=== PATIENT | male | born 1950 | race Caucasian/White ===

== ENCOUNTER 2022-05-16 02:43 | Outpatient (CLI) | payer MEDICARE, SELFPAY ==
[2022-05-16 08:31] LABS: ALT 25 U/L (16-63); AST 17 U/L (15-37); Alkaline Phosphatase 74 U/L (46-116); Anion Gap 7.4 mmol/L (3-11); BUN 17 mg/dL (7-18); CO2 27.6 mmol/L (21.0-32.0); CREATININE 0.9 mg/dL (0.70-1.30); Calcium 9.2 mg/dL (8.5-10.1); Calculated LDL 142 mg/dL (<100); Chloride 106 mmol/L (98-107); Cholesterol 222 mg/dL (<200); Estimated GFR 91.31 (mL/min/1.73m2); Glucose 101 mg/dL (74-106); HDL Cholesterol 70 mg/dL (40-60); Sodium 141 mmol/L (136-145); Total Protein 7.3 g/dL (6.4-8.2); Triglyceride 53 mg/dL (<150)
[2022-05-17 09:24] LABS: Hepatitis C Ab w Rflx HCV PCR Negative (Negative)
== END 2022-05-16 02:44 | disposition home or self-care (01) ==
LOC: LBO 02:43
PROVIDERS: PCP Nurse Practitioner Family; Visit Provider Nurse Practitioner Family
DX: Z13.220 Encounter for screening for lipoid disorders (principal); Z13.1 Encounter for screening for diabetes mellitus; Z11.59 Encounter for screening for other viral diseases
CPT/HCPCS: 36415; 80053; 80061; 86803

== ENCOUNTER 2022-06-19 02:01 | Outpatient (CLI) | payer MEDICARE, SELFPAY ==
--- NOTE | 2022-06-19 12:56 | DI.RAD_ITS ---
Exam(s) XR WRIST RT COMPL NAVICULAR EXAM: XR WRIST RT COMPL NAVICULAR CLINICAL HISTORY: ?H/O fracture,RT WRIST PAIN, DEFORMITY OF WRIST, M21.939,M25.531. TECHNIQUE: 2D digital imaging was performed of the right wrist. Four views were obtained. Scaphoid, PA, lateral and oblique views were obtained. COMPARISON: No exams were available for comparison FINDINGS: BONES: No acute fracture is present. No bony destructive lesion is seen. JOINTS: Moderate degenerative changes are seen in the wrist, particularly at the 1st CMC joint and th e radiocarpal joint. SOFT TISSUE: Normal. IMPRESSION: Degenerative changes of the right wrist. DATA REPOSITORY: RADIATION DOSE DELIVERED:
== END 2022-06-19 02:21 ==
PROVIDERS: PCP Nurse Practitioner Family; Visit Provider Nurse Practitioner Adult Health
DX: M21 Other acquired deformities of limbs (principal); M25.531 Pain in right wrist
CPT/HCPCS: 73110

== ENCOUNTER → 2022-08-01 10:51 | Outpatient (BNVA) | payer MEDICARE, SELFPAY | PROVIDERS: PCP Nurse Practitioner Family; Referring Provider Nurse Practitioner Family; Visit Provider Surgery | DX: R19.5 Other fecal abnormalities (principal) | CPT/HCPCS: 99203; 99242 ==

== ENCOUNTER 2022-08-02 08:57 | Outpatient (CLI) | payer MEDICARE, SELFPAY ==
--- NOTE | 2022-08-02 09:00 | RT.EKG_ITS ---
APPROVED REPORT Exam: Resting ECG Reason for Exam: sinus arrythmia Patient Location: O HR:58 bpm ECG Measurements Heart Rate 58 AXIS [place] 202 P 33 QRSd 104 QRS 43 QT 414 T 21 QTc 407 Conclusion Sinus rhythm...normal P axis, V-rate 50- 99 RSR' in V1 or V2, Otherwise normal ECG
== END 2022-08-02 08:58 | disposition home or self-care (01) ==
PROVIDERS: PCP Nurse Practitioner Family; Visit Provider Surgery
DX: I49.8 Other specified cardiac arrhythmias (principal)
CPT/HCPCS: 93005; 93010

== ENCOUNTER 2022-08-09 09:15 | Day surgery (SDC) | payer MEDICARE, SELFPAY ==
--- NOTE | 2022-08-08 20:46 | W.COLOREPORT ---
Date of service: 08/09/22 Time of Service: 14:00 Colonoscopy Report Date of procedure: 08/09/22 Pre-op diagnosis general: Positive Cologurad Post-op diagnosis procedure note: other (polyps) Surgeon: Jyoti Grubbs Anesthesia Type: General:No Airway Estimated blood loss (mL): 1 Pathology: other Complications: None Disposition: same day Prep: Miralax/Dulcolax Retraction Time: 20 Procedure Description: After informed consent was obtained the patient was taken to the procedure room and placed in a left decubitous position. Monitors were applied and a time out was done. The patients name, date of , procedure, allergies to medications and metal in their body was reviewed. The patient was then sedated. Once sedated and comfortable a rectal exam was done. External exam was normal. Internal exam revealed a normal sphincter tone and no palpable masses. The scope was then introduced and retrofelexed. Internal hemorrhoidal tags were identified. The scope was then advanced to the cecum w/out difficulty. The TI and appendiceal orifice were identified. The prep was BBPS 2 throughout the entire colon for a total of 6. He had a lot of fibrous vegetative material in the colon that clogs the scope. 2 L of fluid was spent irrigating the colon. Lesions less than 5 mm may have been missed. The scope was then slowly retracted over 20 minutes back into the rectum. There are no diverticula or AVMs identified today. He has a flat 0.75 cm polyp at 30 cm. This is removed with a cold biting forcep. All specimen is retrieved and no bleeding is noted. The scope was removed and the patient was woken up and taken back to Same day surgery in stable condition. The patient tolerated the procedure well and there were no immediate complications. Follow up: The patient should follow up in 3,5 years, path pd, unless they develop changes in bowel habits or other new gastrointestinal complaints.
--- NOTE | 2022-08-08 20:48 | PDOC.DSDIS_ITS ---
Date of service: 08/09/22 Time of Service: 10:50 Discharge Plan Disposition Patient Disposition: Home Condition: Good Discharge Details Reason For Visit: colon scope Attending Provider: Jyoti Grubbs Primary Care Provider: Peggy Laura Home Meds and New Rx's Prescriptions: Continued multivitamin Tablet 1 tab PO DAILY cholecalciferol (vitamin D3) 125 mcg (5,000 unit) capsule 125 mcg PO DAILY ascorbic acid (vitamin C) 500 mg capsule 500 mg PO DAILY Discontinued polyethylene glycol 3350 17 gram/dose powder 238 g PO ONCE Qty: 238 0RF Rx Instructions: take per colonoscopy instructions bisacodyl [Dulcolax (bisacodyl)] 5 mg tablet,delayed release (DR/EC) 5 mg PO ONCE Qty: 4 0RF Rx Instructions: take per colonoscopy instructions Discharge Instructions Additional Instructions: DSU Colonoscopy Post- Op Instructions Instructions for Everyone who is given Anesthesia: For your safety, please do the following for the next twenty-four (24) hours: *Do Not operate a motor vehicle (car, truck, motorcycle, etc.) *Do Not drink alcoholic beverages or use any recreational drugs for the first 24 hours or while taking pain medications. The medications in your body may have a reaction that can be dangerous. *Do Not make any important decisions or sign any important papers. Findings: x1 polyps Follow up: Office will send a letter in 2 to 3 weeks time with the pathology of the polyp and when we want you to repeat the colonoscopy. Of course, you should continue to have a yearly physical exam including a rectal exam. If you should ever notice any pain or difficulty having a bowel movement, blood in the stool, unexplained weight loss, or change in your bowel habits, please contact your health provider 1. No lifting over 20 pounds or strenuous activity for the first 24 hours after your procedure. After 24 hours there are no restrictions on your activity but you may feel fatigued for a few days. 2. After you arrive home you may have a light meal and return to your normal diet as you can tolerate it without feeling sick to your stomach. 3. You may have a bloated, gaseous feeling in your belly (abdomen) after a colonoscopy. Passing gas and belching will help. Walking or lying down on your left side with your knees flexed may relieve the discomfort. Call the office at [phone] (Office) or [phone] (Hospital) right away if you notice any of the following: a.Vomiting of blood or ?coffee ground stools?. b.Rectal bleeding 1Tbsp, blood clots or continuous bleeding. c.Severe belly (abdominal) pain. d.A hard distended belly (abdomen) and an inability to pass gas. 4. Please don?t expect to have a normal BM (bowel movement) for 2-3 days after your procedure. 5. If there are questions regarding the findings of your procedure, please contact your doctor 6. If you are unable to contact your doctor with a problem, contact the hospital at [phone]. 7. Continue all your regular medications unless directed otherwise. I understand the above instructions and have no questions. Signature of Patient or Adult Escort Name of Responsible Adult Escort Signature of Nurse Date/Time Activity:: see above Diet:: see above Discharge Orders Discharge Orders: Discharge Order (Routine); Ordered 08/09/22 Ordered By: Jyoti Grubbs DS: Diagnosis Discharge Diagnosis (1) Positive colorectal cancer screening using DNA-based stool test: Status: Acute Asessment and Plan: The patient is seen and examined after their colonoscopy.? The patient has been able to pass gas.? They are not having abdominal pain.? They have been able to tolerate liquids and a snack.? They do not have any nausea or vomiting.? They are not having any chest pain or shortness of breath.??? They are not having any rectal bleeding. Their vital signs have been stable-see nursing notes. We discussed findings during their colonoscopy, and any biopsies that were done/polyps that were removed. The patient will be sent a letter with any biopsy results, and when to repeat the colonoscopy.-see discharge instructions. Patient was given explicit instructions to follow-up regarding colonoscopy-refer to discharge instructions.? We reviewed resumption of medications. Patient verbalized understanding and discharged in stable and satisfactory condition- See nursing notes.
[2022-08-09 09:29] VITALS: BP 135/89; PULSE 77; RESP 17; TEMP 36.5; O2SAT 96
[2022-08-09] MEDS: Lactated Ringers 1,000 ML 80 ML IV (09:40)
--- NOTE | 2022-08-09 09:58 | ANES.PREOP_ITS ---
General Info Date of Service Date Performed: 08/09/22 Height: 5 ft 10 in Weight: 82.5 kg Body Mass Index (BMI): 26.1 Surgical Procedure: Operation Date: 08/09/22 09:50 Proposed Procedure Side Surgeon p Colonoscopy Jyoti Grubbs, DO Actual Procedure Side Surgeon p Colonoscopy Jyoti Grubbs, DO Meds Allergies and Home Medications Allergies Allergy/AdvReac Type Severity Reaction Status Date / Time No Known Allergies Allergy Verified 08/09/22 09:28 Home Medication Medication Instructions Recorded ascorbic acid (vitamin C) 500 mg 500 mg PO DAILY 08/01/22 capsule cholecalciferol (vitamin D3) 125 125 mcg PO DAILY 08/01/22 mcg (5,000 unit) capsule multivitamin 1 tab PO DAILY 08/01/22 Current Visit Medications: Current Medications Generic Name Dose Route Start Last Admin Trade Name Freq PRN Reason Stop Dose Admin Hyoscyamine Sulfate 0.125 mg 08/09/22 08:44 Hyoscyamine 0.125 Mg Sl/Oral/Chew SL 09/08/22 08:43 DIRECTED PRN Ringer's Solution 1,000 mls @ 80 mls/hr 08/09/22 06:00 08/09/22 09:40 IV 08/09/22 23:59 80 mls/hr INFUSION MADDI Administration IV Miscellaneous Supplies 1 each 08/09/22 06:00 Iv Access IV 08/09/22 23:59 DIRECTED MADDI Ondansetron HCl 4 mg 08/09/22 08:44 Ondansetron 4 Mg/2 Ml Vial IVP 09/08/22 08:43 Q4H PRN PRN Nausea / Vomiting Sodium Chloride 0 ml 08/09/22 06:00 Normal Saline Flush 10 Ml Syr IV 08/09/22 23:59 PRN PRN Sodium Chloride 0 ml 08/09/22 06:00 Normal Saline 10 Ml Vial IJ 08/09/22 23:59 DIRECTED PRN Sterile Water 0 ml 08/09/22 06:00 Water,Injection,Sterile 10 Ml Vial IJ 08/09/22 23:59 DIRECTED PRN PFSH Active Problems Active Problems: Problem Status Onset Code Sinus arrhythmia I49.8 Positive colorectal cancer screening using DNA-based stool test R19.5 Hyperlipidemia, unspecified E78.5 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 removed in [facility] [place] Surgical History Surgical History H/O hernia repair (01/09/22) B/[place] inguinal[place] [facility] [place] History of cataract surgery (~2016) [facility] Status post tonsillectomy Tobacco Smoking/Tobacco Use Status: Never Passive smoking exposure: No Substance Use Substance use: Never Substance use type: does not use Vital Signs and Lab Results Vital Signs Most Recent Vital Signs in EMR: Most Recent Vital Signs Temp Pulse Resp BP Pulse Ox 36.5 C 77 17 135/89 96 08/09/22 09:29 08/09/22 09:29 08/09/22 09:29 08/09/22 09:29 08/09/22 09:29 Lab Results Blood Type / Crossmatch: No Data to Display Complete Blood Count: No Data to Display Complete Metabolic Panel: No Data to Display Liver Function Panel: No Data to Display Coagulation Panel: No Data to Display Cardiac Panel: No Data to Display Arterial Blood Gas: No Data to Display Venous Blood Gas: No Data to Display Pancreas Panel: No Data to Display Thyroid Panel: No Data to Display Infectious Disease: No Data to Display Blood Cultures: No Data to Display Toxicology Panel: No Data to Display Anesthesia Assessment and Plan Anesthesia History Personal History: No History of Anesthesia Complications Family History: No Family History of Anesthesia Complications Exercise Tolerance Exercise Tolerance: Metabolic Equivalents>4 Pertinent Negatives Pertinent Negatives: No Symptoms of GERD Cardiac & Pulmonary Exam Cardiac Exam: Normal S1/S2 Heart Sounds Pulmonary Exam: Clear Bilateral Breath Sounds Implantable Cardiac Device Does patient have a Pacemaker or an ICD?: No Airway Exam Known Difficult Airway: No Mallampati Class: 2 Mouth Opening: Normal (> 3cm) Thyromental Distance: Greater than 3 cm Neck Range of Motion: Full ROM Neck Circumference: Normal Teeth Condition: Normal Dentition ASA Classification ASA Score: ASA 2 Emergency Case?: No NPO Status NPO Status: NPO Clears >2 hours, Solids >8 hours Anesthesia Plan Resuscitation Status: Full Code Anesthesia Technique: General Anesthesia Airway Planned: Natural Airway Monitors Used: Standard Monitors
[2022-08-09 09:59] VITALS: BMI 26.1
--- NOTE | 2022-08-09 10:35 | BOWEL_PTH ---
PATIENT: Rosalba Santiago LOC: [facility] U#:[id number] AGE/SX: 72/M ROOM: RE08/09/[address]: Jyoti Grubbs : 1950 BED: DIS: 08/09/2022 SPEC #: [id number] RECD: 08/09/22 12:26 STATUS: RALPH REQ #: [id number] BRIAN: 08/09/22 10:[address]: Jyoti Grubbs DEPT: Surgical Specimen RECD BY: Leigh Ann Shepherd ENTERED: 08/09/22 12:26 SP TYPE: Bowel OTHR DR: Peggy Laura, PROFESSOR OF [employer]ARLY CHILDHOOD EDUCATION Tissues: 1 - BIOPSY BOWEL Procedures: GROSS AND MICRO LEVEL 4 Comments: [id number]
[2022-08-09 10:43] VITALS: BP 116/79; PULSE 69; RESP 16; TEMP 36.5; O2SAT 97
--- NOTE | 2022-08-09 10:50 | W.ANESPOSTOP ---
Postoperative Evaluation Date, Time and Location Date Performed: 08/09/22 Time Performed: 10:50 Patient Location: Day Surgery Unit Vital Signs Most Recent Imported Vital Signs: Most Recent Vital Signs Temp Pulse Resp BP Pulse Ox 36.5 C 77 17 135/89 96 08/09/22 09:29 08/09/22 09:29 08/09/22 09:29 08/09/22 09:29 08/09/22 09:29 Pain Score Most Recent Pain Score: Most Recent Pain Score Pain Level 0 08/09/22 09:29 Assessment Mental Status: Arousable with meaningful communication Airway and Respiratory Function: Patent airway with normal (patient baseline) respiratory exam Cardiovascular Function: Hemodynamically Stable Hydration Status: Adequately Hydrated Nausea & Vomiting: No Nausea or Vomiting Pain: Pt. Denies Any Pain Peripheral Nerve Block: Patient did not receive a nerve block
[2022-08-09 11:08] VITALS: BP 121/87; PULSE 60; RESP 16; TEMP 36.1; O2SAT 100
== END 2022-08-09 11:33 | disposition home or self-care (01) ==
PROVIDERS: PCP Nurse Practitioner Family; Visit Provider Surgery
PROC: 0DJD8ZZ Inspection of Lower Intestinal Tract, Via Natural or Artificial Opening Endoscopic (ICD-10-PCS; CPT 45378; principal; 2022-08-09 09:45)
DX: R19.5 Other fecal abnormalities (principal); D12.5 Benign neoplasm of sigmoid colon; K64.8 Other hemorrhoids
CPT/HCPCS: 45380; 88305; J2001

== ENCOUNTER 2024-10-01 10:33 | Outpatient (REF) | payer MEDICARE, SELFPAY ==
[2024-10-04 12:12] LABS: Chlamydia Result Negative (Negative); GC Result Negative (Negative)
== END 2024-10-01 10:34 | disposition home or self-care (01) ==
LOC: LBN 10:33
PROVIDERS: Nurse Practitioner Family; PCP Family Medicine; Visit Provider Family Medicine
DX: R36.1 Hematospermia (principal)
CPT/HCPCS: 87491; 87591

== ENCOUNTER 2024-10-04 04:21 | Outpatient (CLI) | payer MEDICARE, SELFPAY ==
[2024-10-04 13:53] LABS: HCT 42.6 % (40.0-50.0); HGB 14.4 g/dL (13.5-17.5); MCH 30.8 pg (27.0-33.0); MCHC 33.8 % (32.0-36.0); MCV 91 fL (80-95); MPV 9.1 fL (8.0-11.0); Platelet Count 214 10^3/uL (130-400); RBC 4.68 10^6/uL (4.36-5.78); RDW 12.4 % (11.8-14.1); RDW-SD 40.9 fL; WBC 6.38 10^3/uL (4.4-10.8)
[2024-10-04 14:16] LABS: ESR 1 mm/hr (0-20)
[2024-10-04 14:24] LABS: BUN 17 mg/dL (7-18); Calcium 9.2 mg/dL (8.5-10.1); Glucose 98 mg/dL (74-106)
[2024-10-04 14:25] LABS: ALT 32 U/L (16-63); AST 22 U/L (15-37); Albumin 4.0 g/dL (3.4-5.0); Alkaline Phosphatase 64 U/L (46-116); Anion Gap 5.5 mmol/L (3-11); Bilirubin, Total 0.9 mg/dL (0.2-1.0); CO2 29.5 mmol/L (21.0-32.0); Chloride 106 mmol/L (98-107); Estimated GFR 89.62 (mL/min/1.73m2); Potassium 4.8 mmol/L (3.5-5.1); Sodium 141 mmol/L (136-145); Total Protein 7.3 g/dL (6.4-8.2)
== END 2024-10-04 04:22 | disposition home or self-care (01) ==
LOC: LBO 04:21
PROVIDERS: PCP Family Medicine; Referring Provider Nurse Practitioner Family; Visit Provider Nurse Practitioner Family
DX: R36.1 Hematospermia (principal)
CPT/HCPCS: 36415; 80053; 85027; 85652

== ENCOUNTER 2025-01-12 13:40 | Outpatient (REF) | payer MEDICARE, SELFPAY ==
[2025-01-12 14:01] LABS: C & S Indicated? No; RBC 0-2 HPF (0-2); WBC 0-2 HPF (0-5)
== END 2025-01-12 13:41 | disposition home or self-care (01) ==
LOC: LBN 13:40
PROVIDERS: PCP Family Medicine; Visit Provider Student in an Organized Health Care Education/Training Program
DX: R31.29 Other microscopic hematuria (principal)
CPT/HCPCS: 81015